=== PATIENT | male | born 1950 | race Caucasian/White ===

== ENCOUNTER → 2017-07-16 | Day surgery (SDC) | payer MEDICARE ==
[2017-07-14 11:53] LABS: BASOPHILS % 0.5 % (0.0-1.0); EOSINOPHILS # (AUTO) 0.2 (0.0-0.4); EOSINOPHILS % 3.2 % (0.0-6.0); HEMOGLOBIN 14.1 g/dL (14.0-18.0); LYMPHOCYTES # (AUTO) 1.8 (1.0-3.2); LYMPHOCYTES % 29.2 % (18.0-39.1); MEAN CORPUSCULAR HEMOGLOBIN 30.9 pg (28-32); MEAN CORPUSCULAR HGB CONC 32.8 g/dL (31-35); MEAN CORPUSCULAR VOLUME 94.1 fL (81-99); MONOCYTES # (AUTO) 0.9 (0.2-0.8); MONOCYTES % 13.8 % (4.4-11.3); NEUTROPHILS # (AUTO) 3.3 (2.1-6.9); NEUTROPHILS % 52.8 % (38.7-80.0); PLATELET COUNT 209 x10e3/uL (140-360); RED BLOOD COUNT 4.57 x10e6/uL (4.3-5.7); RED CELL DISTRIBUTION WIDTH 14.7 % (11.7-14.4)
[~2017-07-16] MED LIST: AMIODARONE HCL400 MG PO; ASPIRIN EC81 MG PO; ATORVASTATIN CA20 MG PO; ATORVASTATIN CA40 MG PO; BAYER81 MG; CENTRUM SILVER1 EAC3 PO; CITALOPRAM HBR20 MG PO; COUMADIN3 MG PO; EPHEDRINE SULFATE INJ 50 MG/10 ML SYR ONE; FENOFIBRATE145 MG PO; FENTANYL CITRATE/PF 100MCG/2 ML INJ ONE; GLUCAGON FOR INJ 1 MG VIAL ONE; HUMALOG100 UNITS/ SC; HUMULIN R500 UNIT/1 SQ; HYDROCHLOROTHIA25 MG; INSULIN GLULISINE SC; LEVEMIR100 UNIT/1 SC; LEVEMIR100 UNIT/2 SC; LIDOCAINE HCL 2% LOCAL INJ 5 ML SDV VIAL INJ ONE; LOSARTAN POTAS100 MG PO; LOVAZA1 GM PO; METFORMIN HCL500 MG PO; METOPROLOL TART50 MG PO; MIDAZOLAM HCL 2 MG/2 ML VIAL ONE; POTASSIUM CHLO10 ME1 PO; POTASSIUM PO; PROPOFOL IV EMULSION 10 MG/ML 50 ML VIAL ONE; TOPIRAMATE50 MG PO; Z GLUCOSAMINE; Z.0.AVAPRO300 MG; Z.0.COUMADIN4 MG; Z.0.HYDROCHLOROTH12.; Z.0.JANUMET 50-1,01; Z.0.LASIX20 MG PO; Z.0.LOPID600 MG; Z.0.MULTAQ400 MG; Z.0.NIASPAN500 MG; Z.0.NITROSTAT0.4 MG; Z.0.PLAVIX75 MG; Z.0.TOPROL XL100 MG; Z.0.ZOCOR40 MG; [UNRECOGNIZED DRUG - OTHER]; [UNRECOGNIZED DRUG - OTHER]
== END | disposition home or self-care (01) ==
LOC: OR 08:28
PROVIDERS: ATTEND Internal Medicine Gastroenterology
DX: Z12.11 Encounter for screening for malignant neoplasm of colon (principal); D12.3 Benign neoplasm of transverse colon; K62.1 Rectal polyp; K57.30 Diverticulosis of large intestine without perforation or abscess without bleeding; K63.3 Ulcer of intestine; K64.8 Other hemorrhoids; G47.30 Sleep apnea, unspecified; I10 Essential (primary) hypertension; I48.91 Unspecified atrial fibrillation; E11.9 Type 2 diabetes mellitus without complications; Z01.810 Encounter for preprocedural cardiovascular examination; Z01.812 Encounter for preprocedural laboratory examination; Z79.82 Long term (current) use of aspirin; Z68.42 Body mass index [BMI] 45.0-49.9, adult; Z95.0 Presence of cardiac pacemaker
CPT/HCPCS: 36415 ×2; 45380; 45384; 45385; 82948; 85025; 88305; 93005; J1610; J2001; J2250

== ENCOUNTER → 2017-07-30 | Outpatient (RCR) | payer MEDICARE ==
[~2017-07-30] MED LIST changes: -EPHEDRINE SULFATE INJ 50 MG/10 ML SYR ONE; -FENTANYL CITRATE/PF 100MCG/2 ML INJ ONE; -GLUCAGON FOR INJ 1 MG VIAL ONE; -LIDOCAINE HCL 2% LOCAL INJ 5 ML SDV VIAL INJ ONE; -MIDAZOLAM HCL 2 MG/2 ML VIAL ONE; -PROPOFOL IV EMULSION 10 MG/ML 50 ML VIAL ONE
== END ==
LOC: PT 07-03 12:51
PROVIDERS: ATTEND Specialist
DX: M75.42 Impingement syndrome of left shoulder (principal); M25.512 Pain in left shoulder; M62.81 Muscle weakness (generalized)
CPT/HCPCS: 97110 ×7; 97162; G8981 ×2; G8982 ×2

== ENCOUNTER → 2017-09-02 | Outpatient (CLI) | payer MEDICARE ==
[~2017-09-02] MED LIST changes: +IOPAMIDOL 370 MG/ML 200 ML INFUS..BTL INJ ONE; +SODIUM CHLORIDE 0.9% 500ML 1,000 ML ONE; +SODIUM CHLORIDE 0.9% 50ML 50 ML ONE
[2017-09-02 16:46] LABS: CREATININE, SERUM 1.8 mg/dL (0.72-1.25)
--- NOTE | 2017-09-02 18:14 | Diagnostic Imaging Report ---
PROCEDURE: CT ABDOMEN AND PELVIS WITH CONTRAST TECHNIQUE: The abdomen and pelvis were scanned utilizing a multidetector helical scanner from the diaphragm to the lesser trochanter after the IV administration of 70 cc of Isovue 370 and the oral administration of water. Coronal and sagittal multiplanar reformations were obtained. COMPARISON: Patients [facility], CT, CT ABDOMEN/PELVIS W CONTRAST, 01/11/2011, 11:07. INDICATIONS: ULCERATED ILEITIS FINDINGS: LOWER THORAX: Distal portion of wires noted in the right atrium and right ventricle. Lung bases are grossly clear. HEPATOBILIARY: No focal hepatic lesions. No biliary ductal dilatation. Stable 1.1 cm calcified gallstone. No wall thickening or pericholecystic fluid. SPLEEN: No splenomegaly. PANCREAS: No focal masses or ductal dilatation. ADRENALS: No adrenal nodules. KIDNEYS/URETERS: No hydronephrosis, stones, or solid mass lesions. Stable mild nonspecific perinephric stranding. Slight interval increase in size of 2.5 x 2.5 x 2.6 cm mostly exophytic lesion in the inferior pole of the left kidney (series 2, image 52, and sagittal image 110), which previously measured simple fluid, now with measured density of 27-32 HU (previously measured 2.1 x 2.0 x 1.9 cm). PELVIC ORGANS/BLADDER: Bladder and prostate are unremarkable. Pelvic phleboliths. PERITONEUM / RETROPERITONEUM: No free air or fluid. LYMPH NODES: No lymphadenopathy. VESSELS: Atherosclerotic calcification of the abdominal aorta and iliac vessels. GI TRACT: Visualized bowel shows no dilation or obstruction. Sigmoid diverticulosis, without diverticulitis. Appendix is well identified, and normal in caliber. The ileum has an unremarkable appearance. No surrounding fat stranding/inflammatory changes or fluid collections. BONES AND SOFT TISSUES: No aggressive lytic lesion. Degenerative disc changes in the lower low sacral spine. Interval increase in size of 3.1 x 3.8 x 2.8 cm fat containing umbilical hernia.. IMPRESSION: 1. no acute abdominopelvic abnormalities. Essentially unremarkable appearance of the bowel. The ileum has a grossly unremarkable appearance, without surrounding inflammatory changes or fluid collections. 2. Slight interval increase in size of mostly exophytic cystic lesion in the inferior pole. The left kidney, which previously measure simple fluid, currently with higher attenuation. This most likely represents proteinaceous/hemorrhagic component. Recommend further evaluation with renal ultrasound. 3. Sigmoid diverticulosis, without diverticulitis. Ankit Shoemaker M.D. Dictated by: Ankit Shoemaker M.D. on 09/02/2017 at 18:13 Electronically approved by: Ankit Shoemaker M.D. on 09/02/2017 at 18:13
== END ==
LOC: CT 15:20
PROVIDERS: ATTEND Internal Medicine Gastroenterology
DX: K52.89 Other specified noninfective gastroenteritis and colitis (principal)
CPT/HCPCS: 36415; 74177; 82565; 84520; J7040; Q9967

== ENCOUNTER → 2018-05-27 | Outpatient (CLI) | payer MEDICARE ==
[~2018-05-27] MED LIST changes: -IOPAMIDOL 370 MG/ML 200 ML INFUS..BTL INJ ONE; -SODIUM CHLORIDE 0.9% 500ML 1,000 ML ONE; -SODIUM CHLORIDE 0.9% 50ML 50 ML ONE
--- NOTE | 2018-05-27 18:02 | Diagnostic Imaging Report ---
CT LUMBAR SPINE WO HISTORY: Low back pain, right hip pain, fall COMPARISON: None. TECHNIQUE: Axial CT images of the lumbar spine were obtained without contrast. Coronal and sagittal reconstructions obtained from the axial data. One or more of the following dose reduction techniques were used: Automated exposure control, adjustment of the mA and/or kV according to patient size, and/or utilization of iterative reconstruction technique. DISCUSSION: Mild bone demineralization limits evaluation. There are 5 nonrib-bearing lumbar vertebral bodies. Lumbar lordosis is preserved. Mild lumbar dextroscoliosis is centered at L3. No definite acute fracture or compression deformity is seen. No gross spinal canal mass is seen. The paravertebral and paraspinal soft tissues are unremarkable. Mild to moderate multilevel spondylosis is most prominent at L3-L4 and L5-S1. There are mild degenerative changes in the bilateral sacroiliac joints. L1-L2: No gross canal or foraminal stenosis. L2-L3: There is mild left lateral listhesis of L2 on L3. Mild left foraminal stenosis due to disc bulge and facet arthrosis. No gross canal or right foraminal stenosis. L3-L4: At least mild canal stenosis due to disc bulge and ligamentum flavum thickening. Mild right and moderate to severe left foraminal stenoses due to disc bulge and facet arthrosis. L4-L5: There is mild right lateral listhesis of L4 on L5. Suspected moderate canal stenosis due to disc bulge and ligamentum flavum thickening. Mild to moderate bilateral foraminal stenoses due to disc bulge and facet arthrosis. L5-S1: There is mild left lateral listhesis of L5 on S1. Severe right and mild to moderate left foraminal stenoses due to disc bulge and facet arthrosis. No gross canal stenosis. Partially visualized perinephric fat stranding can be normal for age. Aortoiliac calcified atherosclerosis is present. IMPRESSION: 1. No acute osseous abnormalities. 2. Mild to moderate multilevel spondylosis, most prominent at L3-L4 and L5-S1. Associated mild lumbar dextroscoliosis. 3. Suspected moderate degenerative canal stenosis at L4-L5. 4. Multilevel bilateral degenerative foraminal stenoses - moderate to severe on the left at L3-L4 and severe on the right at L5-S1. Signed by: Dr. Carson Mcintosh M.D. on 05/27/2018 5:59 PM
== END ==
LOC: CT 11:29
PROVIDERS: ATTEND Family Medicine
DX: M47.26 Other spondylosis with radiculopathy, lumbar region (principal)
CPT/HCPCS: 72131

== ENCOUNTER 2022-01-27 19:52 | Emergency (ER) | payer MEDICARE ==
[~2022-01-27] VITALS: Ht 180.3 cm; Wt 124.7 kg
[2022-01-27] MEDS ORDERED: HYDROCODONE/APAP 7.5MG-325MG 1 EA TAB PO ONE (21:30)
[2022-01-27] MEDS ORDERED: HYDROCODON-ACE1 EAC9 PO (21:39)
== END 2022-01-27 21:50 | disposition home or self-care (01) ==
LOC: ER 19:58
DX: S86.811A Strain of other muscle(s) and tendon(s) at lower leg level, right leg, initial encounter (principal); Z96.651 Presence of right artificial knee joint; M79.661 Pain in right lower leg; I10 Essential (primary) hypertension; E11.9 Type 2 diabetes mellitus without complications; E78.5 Hyperlipidemia, unspecified; I48.91 Unspecified atrial fibrillation; Z95.810 Presence of automatic (implantable) cardiac defibrillator; Z98.84 Bariatric surgery status
CPT/HCPCS: 93971; 99284

== ENCOUNTER → 2022-05-06 | Outpatient (CLI) | payer MEDICARE ==
[~2022-05-06] MED LIST changes: +HYDROCODON-ACE1 EAC9 PO
== END ==
LOC: CT 07:33
PROVIDERS: ATTEND Urology
DX: D41.00 Neoplasm of uncertain behavior of unspecified kidney (principal)
CPT/HCPCS: 74176